=== PATIENT | male | born 1970 | race Two or more races ===

== ENCOUNTER 2024-07-28 04:39 | Emergency (ER) | payer MEDICAID ==
--- NOTE | 2024-07-28 04:50 | ED Physician Documentation ---
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 Patient states that he saw a blue line and some stars and then became lightheaded, slipping backwards. He did not pass out and did not hit his head. Denies other focal neurological deficits. His vision has improved and while at rest he is no longer dizzy. he does state he has been behind on sleep and has significant stress at home right now. PD PAST MEDICAL HISTORY - Allergies Allergies/Adverse Reactions: Allergies Allergy/AdvReac Type Severity Reaction Status Date / Time No Known Drug Allergies Allergy Verified 07/28/24 04:50 PD ED PE NORMAL - Vitals Vital signs reviewed: Yes - General General: Alert and oriented X 3, No acute distress, Well developed/nourished - HEENT HEENT: Atraumatic, PERRL, EOMI - Neck Neck: Supple, no meningeal sign - Cardiac Cardiac: RRR - Respiratory Respiratory: No respiratory distress, Clear bilaterally - Abdomen Abdomen: Non tender, Non distended - Derm Derm: Normal color, Warm and dry - Neuro Neuro: Alert and oriented X 3, 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 Relevant findings are: Rate: Rate (enter#) (70) Rhythm: NSR [place]: LAD Intervals: Normal HI QRS: Normal Ischemia: Normal ST segments - Labs Labs: Laboratory Tests 07/28/24 07/28/24 04:56 04:56 WBC 10.4 RBC 4.71 Hgb 14.9 Hct 44.9 MCV 95.3 H MCH 31.6 H MCHC 33.2 RDW 12.8 Plt Count 263 MPV 8.8 Neut # (Auto) 4.3 Lymph # (Auto) 4.7 H Rogers # (Auto) 0.9 Eos # (Auto) 0.4 Baso # (Auto) 0.1 Absolute Nucleated RBC 0.00 Nucleated RBC % 0.0 Sodium 134 L Potassium 3.7 Chloride 103 Carbon Dioxide 26 Anion Gap 5.0 L BUN 16 Creatinine 1.5 H Estimated GFR (MDRD) 49 L Glucose 114 H Calcium 9.0 Total Bilirubin 0.8 AST 21 ALT 25 Alkaline Phosphatase 53 Troponin I High Sens < 2.3 L Total Protein 7.6 Albumin 4.0 Globulin 3.6 Albumin/Globulin Ratio 1.1 Lipase 29 PD Medical Decision Making - ED course ED course: 54yM p/w presyncopal episode tonight while working here at the 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 plan to obtain screening labs including troponin as well as ekg and cxr. he has normal neurologic exam at this time. normal labwork, cxr, benign ekg. provided 1L IVF. plan to f/u outpatient with his doctor for echo and zio monitor. Departure - Departure Disposition: 01 Home, Self Care Clinical Impression: Dizziness, Vasovagal near-syncope Condition: Stable Instructions: ED Near Syncope Unkn Comments: You were seen in the emergency department for lightheaded episode. Your testing here in the ED uncovered no emergent issues but you should still have close follow up. Please follow-up with your primary care provider for possible echocardiogram and zio monitoring and return to the emergency department if you have any new or worsening symptoms or other concerns. Forms: Activity restrictions
[2024-07-28] MEDS: SODIUM CHLORIDE 0.9% 1,000 ML IV STA (04:56)
[2024-07-28 05:03] LABS: BASOPHILS # (AUTO) 0.1 10^3/uL (0.0-0.1); BASOPHILS % (AUTO) 1.2 %; EOSINOPHILS # (AUTO) 0.4 10^3/uL (0.0-0.7); EOSINOPHILS % (AUTO) 3.6 %; HCT - HEMATOCRIT 44.9 % (42.0-52.0); HGB - HEMOGLOBIN 14.9 g/dL (14.0-18.0); LYMPHOCYTES # (AUTO) 4.7 10^3/uL (1.5-3.5); LYMPHOCYTES % (AUTO) 45.3 %; MEAN CORPUSCULAR HEMOGLOBIN 31.6 pg (27.0-31.0); MEAN CORPUSCULAR HGB CONC 33.2 g/dL (32.0-36.0); MEAN CORPUSCULAR VOLUME 95.3 fL (80.0-94.0); MEAN PLATELET VOLUME 8.8 fL (7.4-11.4); MONOCYTES # (AUTO) 0.9 10^3/uL (0.0-1.0); MONOCYTES % (AUTO) 8.5 %; NEUTROPHILS # (AUTO) 4.3 10^3/uL (1.5-6.6); NEUTROPHILS % (AUTO) 40.9 %; PLT - PLATELET COUNT 263 10^3/uL (130-450); RED BLOOD COUNT 4.71 10^6/uL (4.70-6.10); RED CELL DISTRIBUTION WIDTH 12.8 % (12.0-15.0); WHITE BLOOD COUNT 10.4 x10^3/uL (4.8-10.8)
[2024-07-28 05:24] LABS: ALBUMIN/GLOBULIN RATIO 1.1 (1.0-2.2); ALKALINE PHOSPHATASE 53 IU/L (42-121); ALT ALANINE AMINOTRANSFERASE 25 IU/L (10-60); AST ASPARTATE AMINOTRANSFERASE 21 IU/L (10-42); BILIRUBIN,TOTAL 0.8 mg/dL (0.2-1.0); BUN - BLOOD UREA NITROGEN 16 mg/dL (6-20); CARBON DIOXIDE - CO2 26 mmol/L (21-32); CHLORIDE 103 mmol/L (101-111); CREATININE 1.5 mg/dL (0.6-1.3); GFR - MDRD 49 (>89); GLUCOSE 114 mg/dL (74-104); LIPASE 29 U/L (11-82); POTASSIUM 3.7 mmol/L (3.5-4.5); SODIUM 134 mmol/L (135-145); TOTAL PROTEIN 7.6 g/dL (6.4-8.9); TROPONIN I HIGH SENSITIVITY < 2.3 ng/L (2.3-19.7)
[2024-07-28 06:54] VITALS: BP 114/74; O2SAT 99
--- NOTE | 2024-07-28 08:41 | XRAY Report ---
PROCEDURE: Chest 1V INDICATIONS: Chest Pain TECHNIQUE: One view of the chest was acquired. COMPARISON: None. FINDINGS: Surgical changes and devices: None. Lungs and pleura: No pleural effusions or pneumothorax. Lungs are clear. Mediastinum: Mediastinal contours appear normal. Heart size is normal. Bones and chest wall: No suspicious bony lesions. Overlying soft tissues appear unremarkable. IMPRESSION: No acute cardiopulmonary process. Findings are concordant with preliminary interpretation provided by [facility]. Reviewed by: Brandin Waggoner MD on 07/28/2024 7:39 AM JEANIE Approved by: Brandin Waggoner MD on 07/28/2024 7:39 AM JEANIE Station ID: [id number]
== END 2024-07-28 06:52 | disposition home or self-care (01) ==
LOC: ED 04:39
DX: R42 Dizziness and giddiness (principal); R55 Syncope and collapse
CPT/HCPCS: 36415; 80053; 83690; 84484; 85025; 93005; 99283; 99284